=== PATIENT | male | born 1950 | race Caucasian/White ===

== ENCOUNTER 2020-06-10 08:06 | Inpatient (IN) | payer OTHER, MEDICARE ==
[~2020-06-10] VITALS: Ht 177.8 cm; Wt 120.5 kg
[2020-06-10 08:40] LABS: BASOPHILS ABSOLUTE AUTO 0.06 K/mm3 (0.00-0.23); BASOPHILS PERCENT AUTO 0 % (0-2); EOSINOPHILS PERCENT AUTO 0 % (0-6); Hematocrit 43.3 % (37.0-53.0); Hemoglobin 14.3 g/dL (13.5-17.5); IMMATURE GRAN ABSOLUTE AUTO 0.07 K/mm3 (0.00-0.10); IMMATURE GRAN PERCENT AUTO 1 % (0-1); LYMPHOCYTES ABSOLUTE AUTO 0.85 K/mm3 (0.84-5.20); LYMPHOCYTES PERCENT AUTO 6 % (21-46); MONOCYTES ABSOLUTE AUTO 1.35 K/mm3 (0.16-1.47); MONOCYTES PERCENT AUTO 10 % (4-13); Mean Corpuscular HGB 30.8 pg (26.0-34.0); Mean Corpuscular Volume 93 fL (80-100); Mean Platelet Volume 10.3 fL (9.1-12.4); NEUTROPHILS PERCENT AUTO 83 % (41-73); Platelet Count 160 K/mm3 (150-400); RDW Coefficient Variation 11.9 % (11.7-14.2); RDW Standard Deviation 40.9 fL (35.1-46.3); Red Blood Cell Count 4.64 M/mm3 (4.30-5.90); White Blood Cell Count 13.43 K/mm3 (4.00-11.30)
[2020-06-10 08:40] LABS: Source, Urine Clean Catch
[2020-06-10 08:44] LABS: Bilirubin, Urine Neg (Neg); Blood, Urine 5+ (Neg); Glucose Qualitative, Urine Neg (Neg); Ketones, Urine Neg (Neg); Leukocyte Esterase, Urine 3+ (Neg); Nitrite, Urine Pos (Neg); Protein, Urine 2+ (Neg); Specific Gravity, Urine 1.015 (1.003-1.022); Urobilinogen, Urine NORM (Normal)
[2020-06-10] MEDS ORDERED: VITAMIN D310 MC5 PO (08:53)
[2020-06-10 08:54] LABS: Alanine Aminotransfer (ALT/SGP 18 U/L (12-78); Albumin, Blood 2.8 g/dL (3.4-5.0); Albumin/Globulin Ratio 0.7 (0.8-1.8); Alk Phos 64 U/L (50-136); Anion Gap 9 mmol/L (6-16); Aspartate Aminotrans (AST/SGOT 20 U/L (12-37); Blood Urea Nitrogen 18 mg/dL (8-24); Bun/Creatinine Ratio 16.4 (12.0-20.0); CO2, Blood 27 mmol/L (21-32); Calcium, Blood 7.9 mg/dL (8.5-10.1); Chloride, Blood 102 mmol/L (98-108); Globulin, Blood 4.3 g/dL (2.2-4.0); Glomerular Filtration Rate >60 (60-); Glucose, Blood 180 mg/dL (70-99); Potassium, Blood 3.4 mmol/L (3.5-5.5); Sodium, Blood 138 mmol/L (136-145); Total Protein, Blood 7.1 g/dL (6.4-8.2); Troponin I 0.064 ng/mL (0.000-0.040)
[2020-06-10] MEDS ORDERED: PACERONE100 M1 PO (08:54)
[2020-06-10] MEDS ORDERED: SYMBICORT 80-10.2 GM (08:55)
[2020-06-10] MEDS ORDERED: ALBU90OI INH (08:55)
[2020-06-10 09:12] LABS: Appearance, Urine Clear (Clear); Color, Urine Yellow (P-Yellow)
[2020-06-10 09:14] LABS: Red Blood Cells, Urine 0-2 /hpf (0-2); White Blood Cells, Urine TNTC /hpf (0-5)
[2020-06-10 09:15] LABS: Bacteria Many /hpf; Squamous Epithelial Cells Not Seen /hpf (Few)
[2020-06-10 10:16] LABS: Influenza A, PCR Negative (NEGATIVE); Influenza B, PCR Negative (NEGATIVE); Resp Syncytial Virus, PCR Negative (NEGATIVE); SARS-Cov-2 (COVID-19) PCR, MMC Negative (NEGATIVE)
[2020-06-10] MEDS ORDERED: ATOR20 PO (13:04)
[2020-06-10] MEDS ORDERED: DABI150C PO (13:05)
[2020-06-10] MEDS ORDERED: HYDCHL25 PO (13:06)
[2020-06-10] MEDS ORDERED: Synthroid200 MCG PO (13:06)
[2020-06-10] MEDS ORDERED: LOSARTAN POTAS100 M1 PO (13:07)
[2020-06-10] MEDS ORDERED: METF500 PO (13:08)
[2020-06-10] MEDS ORDERED: CALCIPOTRIENE60 G1 TOP (14:26)
[2020-06-10] MEDS ORDERED: EUCERIN ADVANCE85 GM TOP (14:29)
[2020-06-10] MEDS ORDERED: METO25ER PO (14:29)
[2020-06-10] MEDS ORDERED: SELENIUM 2.5% TOP (14:31)
[2020-06-10] MEDS ORDERED: DULO60 PO (14:52)
--- NOTE | 2020-06-10 18:47 | NUR ---
SHIFT SUMMARY NO ACUTE CONCERNS AT THIS TIME. PATIENT IS PLEASANT. HE HAS A TELEMETRY IN PLACE. DENIES ANY PAIN OR NAUSEA. HE IS FEELING WELL. FLUIDS ON.
--- NOTE | 2020-06-11 00:04 | NUR ---
PT COMPLAINED OF CHILLS. VITALS TAKEN. TEMPERATURE OF 100.0 VIA ORALLY. TYLENOL GIVEN. COOL WASHCLOTH APPLIED TO FOREHEAD. WILL CONTINUE TO MONITOR.
[2020-06-11 04:57] LABS: BASOPHILS ABSOLUTE AUTO 0.06 K/mm3 (0.00-0.23); BASOPHILS PERCENT AUTO 1 % (0-2); EOSINOPHILS ABSOLUTE AUTO 0.03 K/mm3 (0.00-0.68); EOSINOPHILS PERCENT AUTO 0 % (0-6); Hematocrit 44.5 % (37.0-53.0); Hemoglobin 14.3 g/dL (13.5-17.5); IMMATURE GRAN ABSOLUTE AUTO 0.04 K/mm3 (0.00-0.10); IMMATURE GRAN PERCENT AUTO 0 % (0-1); LYMPHOCYTES ABSOLUTE AUTO 1.46 K/mm3 (0.84-5.20); LYMPHOCYTES PERCENT AUTO 14 % (21-46); MONOCYTES ABSOLUTE AUTO 1.08 K/mm3 (0.16-1.47); MONOCYTES PERCENT AUTO 10 % (4-13); Mean Corpuscular HGB 30.4 pg (26.0-34.0); Mean Corpuscular HGB Conc 32.1 g/dL (31.5-36.5); Mean Corpuscular Volume 95 fL (80-100); Mean Platelet Volume 10.4 fL (9.1-12.4); NEUTROPHILS ABSOLUTE AUTO 8.05 K/mm3 (1.96-9.15); NEUTROPHILS PERCENT AUTO 75 % (41-73); Platelet Count 160 K/mm3 (150-400); RDW Coefficient Variation 11.8 % (11.7-14.2); RDW Standard Deviation 41.1 fL (35.1-46.3); White Blood Cell Count 10.72 K/mm3 (4.00-11.30)
--- NOTE | 2020-06-11 05:16 | NUR ---
DESKTOP MANAGER SUMMARY PT A/O X4. TEMPERATURE IS NOW STABLE. TELE RUNNING A. FIB AVG 90'S TO 100'S. PT HAS REACHED 150HR TONIGHT WHEN AMBULATING TO BATHROOM, HR DECREASES BACK DOWN WITH REST. PT DENIES PAIN. CPAP IN PLACE AT NIGHT. CURRENT UTI WITH FREQUENT URINATION.
[2020-06-11 05:20] LABS: Anion Gap 5 mmol/L (6-16); Blood Urea Nitrogen 18 mg/dL (8-24); Bun/Creatinine Ratio 16.4 (12.0-20.0); CO2, Blood 32 mmol/L (21-32); Calcium, Blood 8.3 mg/dL (8.5-10.1); Chloride, Blood 102 mmol/L (98-108); Glomerular Filtration Rate >60 (60-); Glucose, Blood 131 mg/dL (70-99); Potassium, Blood 3.6 mmol/L (3.5-5.5); Sodium, Blood 139 mmol/L (136-145)
--- NOTE | 2020-06-11 18:34 | NUR ---
a+o, rm air, saline locked, bed in low position, call light in reach, states he is feeling better, no weakness or sob, hr still climbs when walk to bathroom but returns to baseline when pt is reclining, he denies any dizzyness or other symptoms of hypertension, currently resting on bed with tele and oximeter monitoring him, will continue to treat based on conditions and orders
[2020-06-12 05:39] LABS: Hematocrit 41.7 % (37.0-53.0); Hemoglobin 13.8 g/dL (13.5-17.5); Mean Corpuscular HGB Conc 33.1 g/dL (31.5-36.5); Mean Corpuscular Volume 94 fL (80-100); Mean Platelet Volume 10.3 fL (9.1-12.4); Platelet Count 163 K/mm3 (150-400); RDW Coefficient Variation 11.8 % (11.7-14.2); RDW Standard Deviation 40.7 fL (35.1-46.3); Red Blood Cell Count 4.45 M/mm3 (4.30-5.90); White Blood Cell Count 9.59 K/mm3 (4.00-11.30)
--- NOTE | 2020-06-12 05:51 | NUR ---
SUMMARY PT CONTINUES TO HAVE INCREASED HEART RATE WHEN HE GETS OUT OF BED. PT HAS SLEPT FOR MOST OF SHIFT. PT COMPLAINED OF RIGHT SHOULDER / NECK SORENESS. PT TX W/ TYLENOL W/ RELIEF. PT CURRENTLY SLEEPING AND ON CPAP. CALL LIGHT IN REACH.
[2020-06-12 06:00] LABS: Anion Gap 5 mmol/L (6-16); Blood Urea Nitrogen 19 mg/dL (8-24); Bun/Creatinine Ratio 19.9 (12.0-20.0); CO2, Blood 30 mmol/L (21-32); Calcium, Blood 8.2 mg/dL (8.5-10.1); Chloride, Blood 104 mmol/L (98-108); Creatinine, Blood 0.95 mg/dL (0.60-1.20); Glomerular Filtration Rate >60 (60-); Glucose, Blood 115 mg/dL (70-99); Potassium, Blood 3.4 mmol/L (3.5-5.5); Sodium, Blood 139 mmol/L (136-145)
[2020-06-12] MEDS ORDERED: ACET325 PO (14:30)
[2020-06-12] MEDS ORDERED: LACTOBACILLUS1 EAC4 PO (14:32)
[2020-06-12] MEDS ORDERED: SULFAMETHOXAZO1 EAC1 PO (14:33)
--- NOTE | 2020-06-12 16:54 | NUR ---
PT DISCHARGED FROM THE UNIT AT 1514. IV REMOVED. MEDICATIONS FAXED TO PHARMACY AT THE IN. PT INSTRUCTED ON FOLLOW UP APT. DISCHARGE INSTRUCTIONS REVIEWED. PT LEFT UNIT VIA WHEEL CHAIR.
== END 2020-06-12 15:20 | disposition home or self-care (01) | DRG 871 ==
LOC: ER 08:06 → MEDS 11:09 → ENPENDDIS 06-12 12:31 → MEDS 06-12 15:20
PROVIDERS: Emergency Medicine; Nurse Practitioner Acute Care; ADMIT Internal Medicine
DX: A41.51 Sepsis due to Escherichia coli [E. coli] (principal); I21.A1 Myocardial infarction type 2; N39.0 Urinary tract infection, site not specified; R65.20 Severe sepsis without septic shock; Z51.5 Encounter for palliative care; Z20.828 Contact with and (suspected) exposure to other viral communicable diseases; G47.33 Obstructive sleep apnea (adult) (pediatric); J44.9 Chronic obstructive pulmonary disease, unspecified; I48.91 Unspecified atrial fibrillation; E66.01 Morbid (severe) obesity due to excess calories; E78.5 Hyperlipidemia, unspecified; E11.9 Type 2 diabetes mellitus without complications; Z85.850 Personal history of malignant neoplasm of thyroid; Z87.891 Personal history of nicotine dependence; Z68.37 Body mass index [BMI] 37.0-37.9, adult; E89.0 Postprocedural hypothyroidism
CPT/HCPCS: 0241U; 36415; 71045; 80048; 80053; 81001; 82947; 83605; 83690; 83735; 84439; 84443; 84484; 85025; 85027; 87040; 87077; 87086; 87186; 93005; 93010; 94640; 94762; 96365; 96375; 99285-25; A9270; A9270-GY; J0696; J7030; J7120

== ENCOUNTER 2021-05-06 04:16 | Inpatient (IN) | payer OTHER, MEDICARE ==
[~2021-05-06] VITALS: Ht 177.8 cm; Wt 114.4 kg
[~2021-05-06 04:16] MED LIST: ACET325 PO; ALBU90OI INH; ATOR20 PO; CALCIPOTRIENE60 G1 TOP; DABI150C PO; DULO60 PO; EUCERIN ADVANCE85 GM TOP; HYDCHL25 PO; LACTOBACILLUS1 EAC4 PO; LOSARTAN POTAS100 M1 PO; METF500 PO; METO25ER PO; PACERONE100 M1 PO; SELENIUM 2.5% TOP; SULFAMETHOXAZO1 EAC1 PO; SYMBICORT 80-10.2 GM; Synthroid200 MCG PO; VITAMIN D310 MC5 PO
[2021-05-06 04:35] LABS: BASOPHILS ABSOLUTE AUTO 0.07 K/mm3 (0.00-0.23); BASOPHILS PERCENT AUTO 1 % (0-2); EOSINOPHILS ABSOLUTE AUTO 0.08 K/mm3 (0.00-0.68); EOSINOPHILS PERCENT AUTO 1 % (0-6); Hematocrit 48.6 % (37.0-53.0); Hemoglobin 15.3 g/dL (13.5-17.5); IMMATURE GRAN ABSOLUTE AUTO 0.04 K/mm3 (0.00-0.10); IMMATURE GRAN PERCENT AUTO 0 % (0-1); LYMPHOCYTES ABSOLUTE AUTO 1.04 K/mm3 (0.84-5.20); LYMPHOCYTES PERCENT AUTO 10 % (21-46); MONOCYTES ABSOLUTE AUTO 0.83 K/mm3 (0.16-1.47); MONOCYTES PERCENT AUTO 8 % (4-13); Mean Corpuscular HGB 25.1 pg (26.0-34.0); Mean Corpuscular HGB Conc 31.5 g/dL (31.5-36.5); Mean Corpuscular Volume 80 fL (80-100); Mean Platelet Volume 10.1 fL (9.1-12.4); NEUTROPHILS ABSOLUTE AUTO 8.39 K/mm3 (1.96-9.15); NEUTROPHILS PERCENT AUTO 80 % (41-73); Platelet Count 232 K/mm3 (150-400); RDW Coefficient Variation 14.6 % (11.7-14.2); RDW Standard Deviation 42.2 fL (35.1-46.3); Red Blood Cell Count 6.09 M/mm3 (4.30-5.90); White Blood Cell Count 10.45 K/mm3 (4.00-11.30)
[2021-05-06 04:56] LABS: Albumin, Blood 3.4 g/dL (3.4-5.0); Albumin/Globulin Ratio 0.8 (0.8-1.8); Bilirubin, Total 0.9 mg/dL (0.1-1.0); Bun/Creatinine Ratio 14.6 (12.0-20.0); Calcium, Blood 8.7 mg/dL (8.5-10.1); Creatinine, Blood 1.3 mg/dL (0.60-1.20); Globulin, Blood 4.5 g/dL (2.2-4.0); Potassium, Blood 5.1 mmol/L (3.5-5.5); Total Protein, Blood 7.9 g/dL (6.4-8.2); Troponin I 0.025 ng/mL (0.000-0.040)
[2021-05-06 05:23] LABS: Influenza A, PCR NEGATIVE (NEGATIVE); Influenza B, PCR NEGATIVE (NEGATIVE); Resp Syncytial Virus, PCR NEGATIVE (NEGATIVE); SARS-Cov-2 (COVID-19) PCR, MMC NEGATIVE (NEGATIVE)
[2021-05-06] MEDS ORDERED: METF500 PO (05:38)
[2021-05-06] MEDS ORDERED: EUTHYROX175 MCG PO (05:39)
[2021-05-06 09:19] LABS: Source, Urine Clean Catch
[2021-05-06 09:24] LABS: Appearance, Urine Clear (Clear); Bilirubin, Urine Neg (Neg); Blood, Urine 2+ (Neg); Color, Urine Yellow (P-Yellow); Glucose Qualitative, Urine Neg (Neg); Ketones, Urine Neg (Neg); Leukocyte Esterase, Urine Neg (Neg); Nitrite, Urine Neg (Neg); Protein, Urine 1+ (Neg); Urobilinogen, Urine NORM (Normal)
[2021-05-06 09:48] LABS: Amorphous Light (0-Heavy); Bacteria Rare /hpf; Mucus Mod (0-Heavy); Red Blood Cells, Urine Not Seen /hpf (0-2); Squamous Epithelial Cells Not Seen /hpf (Few); White Blood Cells, Urine Not Seen /hpf (0-5)
--- NOTE | 2021-05-06 13:45 | NUR ---
PATIENT ADMIT TO PCU AT 1256. ABLE TO STAND AND TRANSFER. MOVING ALL EXTREMITIES. DENIES NUMBNESS/TINGLING. NEURO WNL. GLASSES WITH PATIENT. PERRLA. BILATERAL ROLLER SETTER STRENGTH. DENIES NAUSEA/ABDOMINAL PAIN. SBA TO BATHROOM. VERY INDEPENDENT AT HOME. ON ROOM AIR SATING MID 90'S. LUNGS SOUNDING WHEEZY. DENIES SOB. INCREASED RR WITH EXERTION. TELE SHOWING AFIB WITH HR 80-90'S. CARDIZEM DRIP INFUSING AT THIS TIME. VITAL SIGNS STABLE WITH SLIGHT ELEVATED TEMP TRENDING DOWN. DENIES CHEST PAIN/PRESSURE. SKIN OVERAL C/D/I. HISTORY OF PSORIASIS WITH PATCHES SCATTERED THROUGHOUT. ORIENTED TO ROOM/UNIT/CALL LIGHT. WILL CONTINUE TO MONITOR.
--- NOTE | 2021-05-06 16:15 | NUR ---
UPDATE: HR TRENDING IN 80'S FOR TWO HOURS. RHYTHM REMAINS IN AFIB. CALL PLACED TO DR. CAMP. ZIYADM DRIP TURNED OFF AT 1615. SLEEPING AT THIS TIME WITH CPAP IN PLACE. CALL LIGHT IN REACH.
--- NOTE | 2021-05-06 18:40 | NUR ---
SHIFT SUMMARY: NO ACUTE CHANGES. PATIENT REMAINS IN AFIB WITH HR 80-90'S. CARDIZEM REMAINS OFF. EATING WELL. REMAINS ON ROOM AIR AND CPAP WHEN SLEEPING. TEMP CONTINUES TO TREND DOWN. DENIES NEEDS AT THIS TIME. DAUGHTER IN TO VISIT. CALL LIGHT IN REACH. SLEEPING AT THIS TIME.
[2021-05-07 04:18] LABS: BASOPHILS ABSOLUTE AUTO 0.02 K/mm3 (0.00-0.23); BASOPHILS PERCENT AUTO 0 % (0-2); EOSINOPHILS PERCENT AUTO 0 % (0-6); Hematocrit 49.5 % (37.0-53.0); Hemoglobin 15.6 g/dL (13.5-17.5); IMMATURE GRAN ABSOLUTE AUTO 0.05 K/mm3 (0.00-0.10); IMMATURE GRAN PERCENT AUTO 0 % (0-1); LYMPHOCYTES ABSOLUTE AUTO 0.57 K/mm3 (0.84-5.20); LYMPHOCYTES PERCENT AUTO 5 % (21-46); MONOCYTES ABSOLUTE AUTO 0.24 K/mm3 (0.16-1.47); MONOCYTES PERCENT AUTO 2 % (4-13); Mean Corpuscular HGB 24.8 pg (26.0-34.0); Mean Corpuscular HGB Conc 31.5 g/dL (31.5-36.5); Mean Corpuscular Volume 79 fL (80-100); Mean Platelet Volume 9.9 fL (9.1-12.4); NEUTROPHILS ABSOLUTE AUTO 10.33 K/mm3 (1.96-9.15); NEUTROPHILS PERCENT AUTO 92 % (41-73); Platelet Count 244 K/mm3 (150-400); RDW Coefficient Variation 14.5 % (11.7-14.2); RDW Standard Deviation 41.8 fL (35.1-46.3); Red Blood Cell Count 6.28 M/mm3 (4.30-5.90); White Blood Cell Count 11.21 K/mm3 (4.00-11.30)
[2021-05-07 04:44] LABS: Albumin, Blood 3.4 g/dL (3.4-5.0); Albumin/Globulin Ratio 0.7 (0.8-1.8); Bilirubin, Total 0.8 mg/dL (0.1-1.0); Calcium, Blood 8.6 mg/dL (8.5-10.1); Creatinine, Blood 1.26 mg/dL (0.60-1.20); Globulin, Blood 4.7 g/dL (2.2-4.0); Potassium, Blood 3.8 mmol/L (3.5-5.5); Total Protein, Blood 8.1 g/dL (6.4-8.2)
--- NOTE | 2021-05-07 05:53 | NUR ---
SHIFT SUMMARY PT A&OX4. PLEASANT. SP02>92% ON RA, USED HOME CPAP AT [facility]. PT LUNGS WHEEZY T/O, RT IN ROOM FOR BREATHING TREATMENT X2 THIS SHIFT. HAS PRODUCTIVE COUGH. TELEMETRY READ AFIB, HR 90'S-100'S. PT USED URINAL IN BATHROOM MULTIPLE TIMES DURING SHIFT. CALL SAMUEL MIMS.
--- NOTE | 2021-05-07 11:52 | NUR ---
Echocardiogram completed.
--- NOTE | 2021-05-07 19:34 | NUR ---
SHIFT SUMMARY PT A/O X4 AND COOPERATIVE OF CARE. VSS T/O SHIFT WITH O2 SATS > 95% ON RA. PT HR RANGED FROM 90-110'S T/O SHIFT. PT HAD OCCASSIONAL UNPRODUCTIVE COUGHS, VIBRATING PEP ENCOURAGED FOR PT. NO REPORTS OF CHEST PAIN/PRESSURE T/O SHIFT. PT REPORTED "THROAT PAIN", TREATED PER EMAR. PT USED CPAP A FEW TIME T/O DAY WHEN PT WAS SLEEPING, PT WOULD TAKE ON/OFF CPAP OWN THEIR OWN.
--- NOTE | 2021-05-08 06:12 | NUR ---
SHIFT SUMMARY NO ACUTE CHANGES THIS SHIFT. PT A&OX4. SP02>92% ON RA. PT WORE HOME CPAP DURING NOC. RT IN ROOM X2 FOR BREATHING TREATMENTS. TELEMETRY READS AFIB, HR 90'S. HR ELEVATED TO 120'S W/ AMBULATION. PT AMBULATED INDEPENDENTLY TO BATHROOM TO VOID THIS SHIFT. PT SLEPT MOST OF NIGHT. CALL LIGHT IN REACH.
--- NOTE | 2021-05-08 19:20 | NUR ---
SHIFT SUMMARY PT A/OX4 AND COOPERATIVE OF CARE. VSS T/O SHIFT WITH O2 SATS >92% ON RA. PT WOULD SWITCH HIMSELF FROM RA TO CPAP WHEN TRYING TO SLEEP DURING THE DAY. PT GLUCOSE LEVELS RANGED 189-244 T/O SHIFT, TREATED PER EMAR. SEVERE WHEEZES HEARD AT BEGINNING OF SHIFT, LESS SEVERE WHEEZES TOWARDS END OF SHIFT. PT REPORTED RIB PAIN AND THROAT PAIN FROM COUGHING, TREATED PER EMAR.
--- NOTE | 2021-05-09 05:42 | NUR ---
SHIFT SUMMARY NO ACUTE CHANGES THIS SHIFT. VSS. ACXO. ON RA. IN AFIB, CONTROLLED 80'S - 90'S. USING CPAP THIS SHIFT WHILE ASLEEP. LUNG SOUNDS WITH SOME CRACKLES BUT PT STATES THIS HAS IMPROVED "GREATLY."OTHERWISE, PT RESTING QUIETELY. USING CALL LIGHT APPROPRIATELY.
--- NOTE | 2021-05-09 16:46 | NUR ---
SHIFT SUMMARY; A/A/OX4. AFIB DURING SHIFT 90-100. INSULIN COVERAGE NEEDED PER EMAR. VSS, NO ACUTE MEDICAL CHANGES DURING SHIFT. REPORT GIVEN TO MEDICAL FLOOR FOR IN HOUSE TRANSFER.
--- NOTE | 2021-05-09 17:04 | NUR ---
ASSUMED CARE OF PATIENT UPON HIS ARRIVAL FROM PCU AT 1650. A&O X 4, PLEASANT. ON ROOM AIR, OWN CPAP AT BEDSIDE. TELEMETRY VERIFIED WITH Haroon STARR IMPRESS ASSOCIATE, AFIB @ 99. CBG CHECKED PRIOR TO HIS ARRIVAL, 208. ORIENTED PT TO ROOM, CALL LIGHT, AND UNIT ROUTINE. PLAN IS FOR D/C HOME TOMORROW.
--- NOTE | 2021-05-10 07:08 | NUR ---
SHIFT SUMMARY PT IS A 70 Y/O MALE, ADMITTED FOR AFIB C RVR. HE IS A&O X 4, INDEPENDENT IN THE ROOM. RA DURING THE DAY, CPAP AT [facility]. VITAL SIGNS STABLE. NO C/O ACUTE PAIN, NAUSEA OR SOB DURING THE NIGHT. NO ACUTE CHANGES IN PT CONDITION NOTED DURING THE NIGHT. REPORT GIVEN TO ONCOMING RN.
--- NOTE | 2021-05-10 08:00 | NUR ---
pt laying in bed watching tv, a/ox3, pleasant and cooperative with care, follows commands well, denies pain, states he slept well last night, lungs are slightly course a bit dim in bases, resp even and unlabored, no cough noted, hrirr, tele in place running afib per monitor, see strip, no edema noted, ppp+1, cap refill <3sec, vs stable, afebrile, iv site to right wrist, btx3, abd round soft nontender, voids without diff, skin is a bit red, but c/d/i, maew, up ad jacinda indep, sydnie, call light in reach.
[2021-05-10] MEDS ORDERED: METO50ER PO (11:05)
[2021-05-10] MEDS ORDERED: XARELTO20 MG PO (11:06)
[2021-05-10] MEDS ORDERED: SPIRIVA RESPIMAT4 G3 INH (11:09)
[2021-05-10] MEDS ORDERED: PRED20 PO (11:09)
--- NOTE | 2021-05-10 12:45 | NUR ---
PT HAS BEEN DISCHARGED TO HOME, WENT OVER INSTRUCTIONS WITH HIM, HE ONLY WANTS THE PREDNISONE CALLED IN, HE STATES HE HAS EVERYTHING ELSE AT HOME. THIS WAS FAXED TO [facility] PER HIS REQUEST AND HE UNDERSTANDS TO PICK IT UP FIRST THING IN THE AM TO STAY ON SCHEDULE. IV REMOVED INTACT, WAITING ON RIDE.
--- NOTE | 2021-05-10 13:00 | NUR ---
pt has his discharge paperwork, all belongings, left via wheelchair with waiter/waitress first class in attendence.
== END 2021-05-10 13:00 | disposition home or self-care (01) | DRG 871 ==
LOC: ER 04:16 → ERHOLD 05:10 → PCU 05:10 → ER 05:10 → PCU 12:53 → MEDS 05-09 16:53
PROVIDERS: Emergency Medicine; ADMIT Internal Medicine
PROC: 5A09457 Assistance with Respiratory Ventilation, 24-96 Consecutive Hours, Continuous Positive Airway Pressure (ICD-10-PCS; principal; 2021-05-09)
DX: A41.9 Sepsis, unspecified organism (principal); J96.01 Acute respiratory failure with hypoxia; J18.9 Pneumonia, unspecified organism; J96.02 Acute respiratory failure with hypercapnia; J44.1 Chronic obstructive pulmonary disease with (acute) exacerbation; J44.0 Chronic obstructive pulmonary disease with (acute) lower respiratory infection; N18.30 Chronic kidney disease, stage 3 unspecified; Z20.822 Contact with and (suspected) exposure to COVID-19; G47.33 Obstructive sleep apnea (adult) (pediatric); I48.91 Unspecified atrial fibrillation; Z79.01 Long term (current) use of anticoagulants; Z85.850 Personal history of malignant neoplasm of thyroid; E78.5 Hyperlipidemia, unspecified; E66.9 Obesity, unspecified; Z79.899 Other long term (current) drug therapy; Z79.84 Long term (current) use of oral hypoglycemic drugs; Z87.891 Personal history of nicotine dependence; Z98.890 Other specified postprocedural states; E11.22 Type 2 diabetes mellitus with diabetic chronic kidney disease; Z68.35 Body mass index [BMI] 35.0-35.9, adult
CPT/HCPCS: 0241U; 36415; 71045; 80053; 81001; 82947; 83605; 83880; 84145; 84484; 85025; 87040; 87070; 87205; 93005; 93010; 93306; 94640; 94664; 94760; 94762; 96365; 96366; 96375; 96376; 99285-25; A9270; J0456; J0696; J1160; J1940; J2930; J7050